=== PATIENT | male | born 1995 | race Caucasian/White ===

== ENCOUNTER 2018-08-14 18:44 | Emergency (ER) | payer OTHER ==
[2018-08-14 20:06] LABS: BASO % 0.2 % (0.0-1.0); EOS # 0.1 10^3/uL (0.0-0.50); EOS % 0.8 % (0.0-3.0); HEMATOCRIT 44.1 % (42.0-52.0); HEMOGLOBIN 15.5 g/dl (13.5-17.5); IMMATURE GRANULOCYTE % 0.7 % (0-3.0); LYMPH % 5.5 % (24.0-44.0); MEAN CORPUSCULAR HEMOGLOBIN 31.9 pg (27.0-33.0); MEAN CORPUSCULAR HGB CONC 35.1 g/dl (32.0-36.5); MEAN CORPUSCULAR VOLUME 90.7 fl (80.0-96.0); MONO # 1.2 10^3/uL (0.0-0.8); MONO % 6.4 % (0.0-5.0); NEUTROPHILS # 15.7 10^3/uL (1.8-7.7); NEUTROPHILS % 86.4 % (36.0-66.0); PLATELET COUNT, AUTOMATED 225 10^3/uL (150-450); RED BLOOD COUNT 4.86 10^6/uL (4.30-6.10); RED CELL DISTRIBUTION WIDTH 11.9 % (11.5-14.5); WHITE BLOOD COUNT 18.2 10^3/uL (4.0-10.0)
[2018-08-14 20:29] LABS: AMPHETAMINES LEVEL URINE NEGATIVE (NEGATIVE); BARBITURATES URINE NEGATIVE (NEGATIVE); BENZODIAZEPINES URINE NEGATIVE (NEGATIVE); CANNABINOIDS URINE NEGATIVE (NEGATIVE); COCAINE METABOLITE URINE NEGATIVE (NEGATIVE); METHADONE URINE NEGATIVE (NEGATIVE); OPIATES URINE NEGATIVE (NEGATIVE); PHENCYCLIDINE URINE NEGATIVE (NEGATIVE)
[2018-08-14 20:40] LABS: ALBUMIN 4.7 GM/DL (3.2-5.2); ALBUMIN/GLOBULIN RATIO 1.52 (1.00-1.93); ALKALINE PHOSPHATASE 50 U/L (45-117); ALT/SGPT 25 U/L (12-78); ANION GAP 8 MEQ/L (8-16); AST/SGOT 50 U/L (7-37); BILIRUBIN,DIRECT 0.3 MG/DL (0.0-0.2); BLOOD UREA NITROGEN 11 MG/DL (7-18); CALCIUM LEVEL 9.1 MG/DL (8.5-10.1); CARBON DIOXIDE LEVEL 26 MEQ/L (21-32); CHLORIDE LEVEL 105 MEQ/L (98-107); CPK CREATINE PHOSPHOKINASE 503 U/L (39-308); CREATININE FOR GFR 1.23 MG/DL (0.70-1.30); ETHYL ALCOHOL (ETHANOL) < 0.003 % (0.000-0.010); FREE T4 1.27 NG/DL (0.76-1.46); GLOMERULAR FILTRATION RATE > 60.0 (>60); GLUCOSE, FASTING 76 MG/DL (70-100); MAGNESIUM LEVEL 2.4 MG/DL (1.8-2.4); MB/CK RELATIVE INDEX 0.44 (< OR =4); POTASSIUM SERUM 4.3 MEQ/L (3.5-5.1); SODIUM LEVEL 139 MEQ/L (136-145); TOTAL PROTEIN 7.8 GM/DL (6.4-8.2); TROPONIN I < 0.02 NG/ML (< 0.10)
[2018-08-14 20:49] LABS: LACTIC ACID SEPSIS PROTOCOL 2.6 MMOL/L (0.4-2.0)
[2018-08-14] MEDS: NS 1,000 ML IV (21:00)
[2018-08-14 21:33] LABS: BEDSIDE GLUCOSE 79 MG/DL (70-105)
== END 2018-08-14 22:27 | disposition home or self-care (01) ==
LOC: M ED 18:44
DX: R56.9 Unspecified convulsions (principal)
CPT/HCPCS: 71045

== ENCOUNTER 2019-12-05 07:06 | Day surgery (SDC) | payer OTHER ==
[~2019-12-05] VITALS: Ht 175.3 cm; Wt 69.1 kg
[~2019-12-05 07:06] MED LIST: LIDOCAINE 1% MDV 20ML VIAL SQ PRN; LR 1,000 ML IV ONE
[2019-12-05] MEDS ORDERED: ROCURONIUM BROMIDE 50 MG/5 ML VIAL As Ordered ONE (09:48)
[2019-12-05] MEDS ORDERED: LIDOCAINE 2% INJ 100 MG/5 ML SDV (FOR ANES.) As Ordered ONE (09:48)
[2019-12-05] MEDS ORDERED: ONDANSETRON 4MG/2ML VIAL (J2405) As Ordered ONE (09:48)
[2019-12-05] MEDS ORDERED: dexameTHASONE 4 MG/ML 1ML VIAL (J1100) As Ordered ONE (09:48)
[2019-12-05] MEDS ORDERED: propofoL 200 MG/20 ML VIAL As Ordered ONE (09:48)
[2019-12-05] MEDS ORDERED: OXYMETAZOLINE NASAL SPRAY (AFRIN) As Ordered ONE (10:01)
[2019-12-05] MEDS ORDERED: LIDOCAINE W/EPINEPHRINE 1% 20ML VIAL As Ordered ONE ×2 (10:01→10:45)
[2019-12-05] MEDS ORDERED: METHYLENE BLUE 0.5% (5MG/ML) 10 ML AMP (PROVAYBLUE)(Q9968 PER 1MG) As Ordered ONE (10:01)
[2019-12-05] MEDS ORDERED: SUGAMMADEX SODIUM 500 MG/5 ML VIAL (BRIDION) As Ordered ONE (10:57)
[2019-12-05] MEDS ORDERED: fentaNYL 250 MCG/5 ML INJECTION (J3010) As Ordered ONE (12:01)
[2019-12-05] MEDS ORDERED: fentaNYL 100 MCG/2 ML INJECTION (J3010) IV PRN (12:15)
[2019-12-05] MEDS ORDERED: IBUPROFEN 800 MG TAB PO PRN (12:15)
[2019-12-05] MEDS ORDERED: ONDANSETRON 4MG/2ML VIAL (J2405) IV PRN (12:15)
[2019-12-05] MEDS ORDERED: PERCOCET 5MG/325MG TAB PO PRN ×2 (12:15)
[2019-12-05] MEDS ORDERED: METOCLOPRAMIDE INJ 10MG/2ML VIAL (J2765) IV PRN (12:15)
[2019-12-05] MEDS ORDERED: LR 1,000 ML IV SCH (12:15)
[2019-12-05] MEDS ORDERED: MEPERIDINE INJ 25 MG/ML VIAL (J2175) IV PRN (12:15)
[2019-12-05 12:35] VITALS: BP 130/89
--- NOTE | 2019-12-08 10:21 | RO ---
DATE OF PROCEDURE: 12/05/2019 POSTOPERATIVE DIAGNOSIS: Deviated septum, chronic rhinitis. POSTOPERATIVE DIAGNOSIS: Deviated septum, chronic rhinitis. PROCEDURE: Septoplasty. SURGEON: Dr. Solomon Mckenzie. ANESTHESIA: General endotracheal anesthesia. INDICATIONS: 23-year-old with multiple nasal injuries in the past with significant deformity of the septum creating nasal obstructing bilaterally. PROCEDURE: Under satisfactory general endotracheal anesthesia administered pharyngeal pack placed. Nose was prepared for surgery. Cotton pledgets with Afrin solution was placed in his nasal cavity bilaterally. 1% Xylocaine 1:100,000 epinephrine was used and injected into the nasal septum and turbinates bilaterally. A Pieter incision was made on the left side of the nose. A mucoperichondrial flap and envelope was created on the left side of the nasal septum and carried down to the junction of the bony and cartilaginous septum. This was then with an elevator, and an envelope was then created on the right side of the septum. A Prabhjot scissors was used to make a cut high in the perpendicular plate in the midportion of the vomer, and a central segment of the bony septum was resected. Next, with the round knife on the [place] elevator, a strip of cartilage was resected from the floor of the nose, mobilizing the quadrilateral cartilage and creating a swinging door. Then, a central segment of cartilaginous septum was resected, preserving a 1 cm dorsal and caudal strut. Double-action rongeur was used to take down deflected portions of the perpendicular plate, as well. Finally, the maxillary crest spur was taken down after elevating mucoperiosteum off both sides of it with a chisel. A segment of the resected cartilage was morselized and placed back into the septal envelope. The incision was closed using an interrupted #5-0 chromic suture. Then, a #4-0 plain suture was placed in a [id number] fashion through the two leaves of mucoperichondrium to appose them. The pharyngeal pack was removed. Patient was then awakened and extubated and sent to the recovery room in satisfactory condition. Patient will have Percocet for pain, doxycycline 100 mg twice a day. He will be seen in the office in 3 days for splint removal.
== END 2019-12-05 13:10 | disposition home or self-care (01) ==
LOC: M SDC 07:06
PROVIDERS: ATTEND Specialist
DX: J34.2 Deviated nasal septum (principal); J31.0 Chronic rhinitis; F17.220 Nicotine dependence, chewing tobacco, uncomplicated
CPT/HCPCS: 30140; 30520; 88300; 88305; J1100; J2405; J3010; Q9968

== ENCOUNTER 2019-12-15 02:00 | Emergency (ER) | payer OTHER ==
[~2019-12-15] VITALS: Ht 175.3 cm; Wt 68.2 kg
[2019-12-15 02:01] VITALS: BP 144/85
[2019-12-15] MEDS ORDERED: LIDOCAINE 1% MDV 20ML VIAL SC ONE (04:00)
[2019-12-15] MEDS ORDERED: LIDOCAINE 1% MDV 20ML VIAL As Ordered ONE (04:00)
== END 2019-12-15 05:31 | disposition home or self-care (01) ==
LOC: M ED 02:00
DX: S61.411A Laceration without foreign body of right hand, initial encounter (principal); W25.XXXA Contact with sharp glass, initial encounter; Y92.018 Other place in single-family (private) house as the place of occurrence of the external cause

== ENCOUNTER 2020-04-22 19:40 | Emergency (ER) | payer OTHER ==
[~2020-04-22] VITALS: Ht 175.3 cm; Wt 65.9 kg
[2020-04-22 21:30] VITALS: BP 130/70
== END 2020-04-22 21:36 | disposition home or self-care (01) ==
LOC: M ED 19:40
DX: F43.0 Acute stress reaction (principal); Z87.891 Personal history of nicotine dependence

== ENCOUNTER 2025-09-02 21:15 | Emergency (ER) | payer OTHER, SELFPAY ==
[~2025-09-02] VITALS: Ht 175.3 cm; Wt 67.0 kg
[2025-09-02 21:17] VITALS: BP 141/98; TEMP 98.5; O2SAT 99
== END 2025-09-02 22:34 | disposition left against medical advice (07) ==
LOC: M ED 21:15
DX: Z53.21 Procedure and treatment not carried out due to patient leaving prior to being seen by health care provider (principal)